=== PATIENT | male | born 1965 | race Caucasian/White ===

== ENCOUNTER → 2020-03-19 | Outpatient (CLI) | payer OTHER, SELFPAY ==
--- NOTE | 2020-03-19 | IMM_PTH ---
PATIENT: MARK VUONG LOC: [facility] U#:[id number] AGE/SX: 55/M ROOM: RE03/19/[address]: Dr. Jovi Martin MD : 1965 BED: DIS: 03/19/2020 SPEC #: [id number] RECD: 03/23/20 12:35 STATUS: MIRTHA REQ #: [id number] DAMON: 03/19/20 00:[address]: Jovi Martin DEPT: IMMUNOHISTOCHEMISTRY RECD BY: Hilary Vidales Tissues: D - PROSTATE LEFT E - PROSTATE LEFT F - PROSTATE LEFT Procedures: 34BE12 (add) P40 (add) 34BE12 (initial) PHYSICIAN & INSTITUTION [place] [id number] SPECIMEN INFORMATION: Tissue Source: D - Left apex, E - Left mid, F - Left base Clinical Info: Elevated PSA Specimen Number: [id number] D-F CPT code: 53104, 48192 x5 METHODOLOGY: Deparaffinized sections of prefer/formalin-fixed tissue or PAP/DQ stained slides are incubated with monoclonal/polyclonal antibodies/oligonucleotide probes. Localization is made via biotin free immunoperoxidase method. Appropriate controls are performed and reacted as expected. Results on target cell population are indicated in the following table: RESULTS: ANTIBODY / CLONE RESULT Block D P40 (BC28) negative 34BE12 (34BE12) negative Block E P40 (BC28) negative 34BE12 (34BE12) negative Block F P40 (BC28) negative 34BE12 (34BE12) negative These tests were developed and their performance characteristics determined by [facility]. They may not have been cleared or approved by the U.S. Food and Drug Administration. The FDA has determined that such clearance or approval is not necessary. The above immunohistochemical/dualISH markers are ordered and reviewed by the Pathologist. INTERPRETATION: D. Left prostate, apex, core biopsy: Adenocarcinoma. E. Left prostate, mid, core biopsy: Adenocarcinoma. F. Left prostate, base, core biopsy: Adenocarcinoma. KANDICE:rosie 03/24/20
--- NOTE | 2020-03-19 13:00 | PROSBIL_PTH ---
PATIENT: MARK VUONG [facility][id number] AGE/SX: 55/M ROOM: RE03/19/[address]: Dr. Jovi Martin MD : 1965 BED: DIS: 03/19/2020 SPEC #: [id number] RECD: 03/19/20 15:00 STATUS: MIRTHA ANGELICA #: [id number] DAMON: 03/19/20 13:[address]: Jovi Martin DEPT: SURGICAL PATHOLOGY RECD BY: Romain Contreras Tissues: A - PROSTATE RIGHT B - PROSTATE RIGHT C - PROSTATE RIGHT D - PROSTATE LEFT E - PROSTATE LEFT F - PROSTATE LEFT Procedures: PROSTATE BX HEADER OPERATION: Prostate biopsy PRE-OP DIAGNOSIS: Elevated PSA TISSUE SUBMITTED: A - Right apex, B - Right mid, C - Right base, D - Left apex, E - Left mid, F - Left base MICROSCOPIC DIAGNOSIS A. Right prostate, apex, core biopsy: Prostatic adenocarcinoma. [employer] grade: 3+3=6 Number of cores involved: 1/2 Proportion of tissue involved: 40% Perineural invasion: Not identified. Greatest tumor length: 0.7 cm Focal high-grade prostatic intraepithelial neoplasia (HGPIN). B. Right prostate, mid, core biopsy: Prostatic adenocarcinoma. [employer] grade: 3+4=7 Number of cores involved: 1/2 Proportion of tissue involved: ~50% Perineural invasion: Not identified. Greatest tumor length: 0.5 cm C. Right prostate, base, core biopsy: Prostatic adenocarcinoma. [employer] grade: 3+4=7 Number of cores involved: 1/2 Proportion of tissue involved: ~10% Perineural invasion: present, focal Greatest tumor length: 0.2 cm D. Left prostate, apex, core biopsy: Prostatic adenocarcinoma. [employer] grade: 3+3=6 Number of cores involved: 2/2 Proportion of tissue involved: ~10% Perineural invasion: Not identified. Greatest tumor length: 0.15 cm See comment. E. Left prostate, mid, core biopsy: Prostatic adenocarcinoma. Carmen grade: 3+3=6 Number of cores involved: 2/2 Proportion of tissue involved: ~20% Perineural invasion: Not identified. Greatest tumor length: 0.4 cm, discontinuous Focal high-grade prostatic intraepithelial neoplasia (HGPIN). See comment. F. Left prostate, base, core biopsy: Prostatic adenocarcinoma. [employer] grade: 3+4=7 Number of cores involved: 1/2 Proportion of tissue involved: <5% Perineural invasion: Not identified. Greatest tumor length: 0.1 cm Focal high-grade prostatic intraepithelial neoplasia (HGPIN). See comment. KANDICE:rosie 03/23/20 COMMENT D-F. Immunohistochemistry ([id number]) supports the above diagnosis. Case has been reviewed in consultation with Dr. Fernández who concurs with the above diagnosis. IDC:AM MICROSCOPIC DESCRIPTION Slides are reviewed. GROSS DESCRIPTION A - Received is one container designated prostate, right apex. The specimen consists of two elongated fragments of light hall-white soft tissue each measuring 1.5 cm in length and 0.1 cm in diameter. The specimen is totally submitted in one cassette. B - Received is one container designated prostate, right mid. The specimen consists of two elongated fragments of light hall-white soft tissue measuring 0.5 and 1.5 cm in length and 0.1 cm in diameter. The specimen is totally submitted in one cassette. C - Received is one container designated prostate, right base. The specimen consists of two elongated fragments of light hall-white soft tissue measuring 1 and 1.2 cm in length and 0.1 cm in diameter. The specimen is totally submitted in one cassette. D - Received is one container designated prostate, left apex. The specimen consists of two elongated fragments of light hall-white soft tissue measuring 0.6 and 0.7 cm in length and 0.1 cm in diameter. The specimen is totally submitted in one cassette. E - Received is one container designated prostate, left mid. The specimen consists of two elongated fragments of light hall-white soft tissue each measuring 0.7 cm in length and 0.1 cm in diameter. The specimen is totally submitted in one cassette. F - Received is one container designated prostate, left base. The specimen consists of two elongated fragments of light hall-white soft tissue each measuring 0.6 cm in length and 0.1 cm in diameter. The specimen is totally submitted in one cassette. / SJ:rosie 03/20/20 TC:0 CPT: 39314 x6
== END | disposition home or self-care (01) ==
PROVIDERS: Visit Provider Urology
DX: R97.20 Elevated prostate specific antigen [PSA] (principal)
CPT/HCPCS: 88305; 88341; 88342; G0416

== ENCOUNTER → 2020-04-15 08:28 | Outpatient (CLI) | payer SELFPAY, OTHER ==
--- NOTE | 2020-04-15 08:39 | NM_ITS ---
CLINICAL: 55-year-old male with history of carcinoma of the prostate. WHOLE BODY 99m Tc MDP RADIONUCLIDE BONE SCINTIGRAPHY COMPARISON: MRI of the abdomen report 04/15/2020 FINDINGS: Following the intravenous administration of 27.1 mCi of 99m Tc MDP, whole body bone images reveal: 1. Increased radiopharmaceutical concentration is identified in the region of the left posterior seventh-eighth ribs. 2. Enhanced tracer distribution is visualized in the acromioclavicular and sternoclavicular compartments of both shoulders, tricompartment involvement of the right knee, bilateral ankles, the left hand, upper cervical spine posteriorly on the left and right. 3. The remaining skeletal structures are scintigraphically unremarkable with normal-appearing renal images and urinary bladder activity identified. There is evidence of rib stifling involving the right and to lesser extent left posterior chest wall. NM/Bone Scan Whole Body IMPRESSION: 1. The increase in tracer uptake defined in the left posterior seventh and eighth ribs is most consistent with trauma-fracture. Plain film radiography correlation may be of benefit. 2. Degenerative arthritis appears expressed in the bilateral shoulders, right knee, right and left ankles, left hand, upper cervical spine. 3. There is no definitive typical scintigraphic evidence of skeletal metastatic disease on the current examination. Electronically Signed: Pastor Sauer DO at 22:30 EST Tel , Service support ,
--- NOTE | 2020-04-15 12:22 | MRI_ITS ---
STUDY: MRI ABDOMEN WITH AND WITHOUT CONTRAST REASON FOR EXAM: Male, 55 years old. prostate cancer, attn; liver -- no pain TECHNIQUE: Standardized fat and water weighted pulse sequences were obtained in all 3 orthogonal planes post contrast administration. IV dotarem 18ml was administered for the contrast portion of the examination. COMPARISON: None. FINDINGS: The visualized lung bases are unremarkable. The visualized portions of the heart are within normal limits. 4 cm round of the T2 hyperintense mass within the lateral segment left lobe of liver demonstrates peripheral globular enhancement which fills in over time consistent with a hemangioma. A similar 1 cm lesion is seen in the subcapsular posterior segment the right lobe of the liver. A subcentimeter T2 hyperintense lesion is seen more inferiorly in the subcapsular posterior segment the right lobe of the liver. These are likely all hemangiomas. The gallbladder is contracted. Normal spleen. Normal pancreas. Normal bilateral adrenal glands. Normal right kidney. Normal left kidney. Normal visualized stomach. Normal small intestine. Normal colon. There is non-visualization of the appendix. Normal abdominal aorta. Normal inferior vena cava. Normal retroperitoneum. Normal abdominal wall. Normal osseous structures. MRI/MRI Abd WITH and W/O Contrast IMPRESSION: Multiple hepatic hemangiomas but no MR evidence metastatic disease. Electronically Signed: Pastor Benavides MD at 15:18 EST Tel , Service support ,
--- NOTE | 2020-04-15 12:22 | MRI_ITS ---
STUDY: MR PELVIS WITH AND WITHOUT CONTRAST (PROSTATE) REASON FOR EXAM: Male, 55 years old. Elevated PSA TECHNIQUE: Standardized multiparametric prostate MRI with T1, T2, DWI/ADC sequences were obtained in 3 orthogonal planes, and dynamic contrast enhancement sequences. 18 ml of Dotarem contrast material was administered intravenously for the contrast portion of the examination. COMPARISON: None. FINDINGS: The prostate volume measures 38 mm3. The contours of the prostate gland are smooth. There is not mass effect on the bladder base. The transition zone is homogenous. PI-RADS DWI score 1 - No abnormality (normal) on ADC or high b-value DWI. PI-RADS T2W score 1 - Normal appearing TZ or a round, completely encapsulated nodule (typical nodule).. Contrast enhancement no early or contemporaneous enhancement; or diffuse multifocal enhancement NOT corresponding to a focal finding on T2W and/or DWI or focal enhancement responding to a lesion demonstrating features of BPH onT2WI (including features of extruded BPH in the PZ). The peripheral zone is homogenous except for a triangular area of increased T2, decreased T1 signal intensity (image 18 series 5) in the left posterior base, likely sequela of prior localized prostatitis for biopsy. In the right posterior prostate apex (image 24 series 5), there is a 5.4 mm T2 hypointense nodule. PI-RADS DWI score 3 - Focal (discrete and different from the background) mildy hypointense on ADC and/or focal hyperintense on high b-value DWI. Difficult to visualize in the DWI images; evident on image 8 of series 700 (exponential apparent diffusion coefficient). PI-RADS T2W score 4 - Circumscribed, homogenous moderate hypointense focus/mass confined to prostate and < 1.5 cm in greatest dimension. Contrast enhancement no early or contemporaneous enhancement; or diffuse multifocal enhancement NOT corresponding to a focal finding on T2W and/or DWI or focal nhancement responding to a lesion demonstrating features of BPH onT2WI (including features of extruded BPH in the PZ). The seminal vesicles demonstrate normal margins and T2 signal pattern. No mass lesion or invasion depicted. The rectoprostatic angles are normal. Urinary bladder is normal without wall thickening. The vascular structures of the are normal. The visualized hollow viscus structures are normal. No bone marrow edema or mass lesion depicted. MRI/Pelvis W/WO Contrast IMPRESSION: 1. PIRADS v2.1 2019 -- 3 - Intermediate (clinically significant cancer is equivocal). Electronically Signed: Juan Wilson MD ([place]) at 14:58 EST , Service support ,
== END ==
PROVIDERS: PCP Family Medicine; Referring Provider Radiology Radiation Oncology; Visit Provider Radiology Radiation Oncology
DX: C61 Malignant neoplasm of prostate (principal)
CPT/HCPCS: 72197; 74183; 78306; A9575; A4216